=== PATIENT | female | born 1995 | race African-American/Black ===

== ENCOUNTER 2020-08-11 08:57 | Emergency (ER) | payer BC, MEDICAID ==
[~2020-08-11] VITALS: Ht 167.6 cm; Wt 83.9 kg
--- NOTE | 2020-08-11 09:16 | NUR ---
Dr Ayala at the bedside for MSE.
[2020-08-11] MEDS ORDERED: DEXAMETHASONE SOD PHOSPHATE 4 MG INJ IM ONE (09:30)
[2020-08-11] MEDS ORDERED: HYDROCODONE/APAP 5-325MG TABLET PO ONE (09:30)
[2020-08-11] MEDS ORDERED: DEXAMETHASONE SOD PHOSPHATE 10 MG INJ ONE (09:35)
[2020-08-11] MEDS ORDERED: HYDROCODONE/APAP 5-325MG TABLET ONE (09:35)
--- NOTE | 2020-08-11 09:36 | NUR ---
Strep swab collected and taken to LAB.
--- NOTE | 2020-08-11 10:32 | NUR ---
Pt states her throat feels better and wishes to be discharged.
[2020-08-11] MEDS ORDERED: PENI500T PO (10:47)
[2020-08-11 10:53] VITALS: BP 122/68
--- NOTE | 2020-08-11 10:53 | NUR ---
Patient discharged to home in stable condition. Written and verbal after care instructions given. Patient verbalizes understanding of instructions. Stressed follow up or return to ER for worsening s/s.
== END 2020-08-11 10:54 | disposition home or self-care (01) ==
LOC: ER 08:57
DX: J02.9 Acute pharyngitis, unspecified (principal)
CPT/HCPCS: 86403; 87070; 96372; 99283; J1100; A4663

== ENCOUNTER 2020-08-13 14:15 | Emergency (ER) | payer MEDICAID ==
[~2020-08-13] VITALS: Ht 167.6 cm; Wt 83.9 kg
[~2020-08-13 14:15] MED LIST: PENI500T PO
[2020-08-13] MEDS ORDERED: MUPI22OI2 TP (14:26)
== END 2020-08-13 14:45 | disposition home or self-care (01) ==
LOC: ER 14:15
DX: L01.00 Impetigo, unspecified (principal)
CPT/HCPCS: A4663